=== PATIENT | female | born 1990 | race Caucasian/White ===

== ENCOUNTER 2025-01-08 22:55 | Emergency (ER) | payer OTHER ==
[~2025-01-08] VITALS: Ht 162.6 cm; Wt 72.2 kg
[2025-01-08 23:07] VITALS: BP 139/87; PULSE 130; RESP 16; TEMP 98.2; O2SAT 98
== END 2025-01-09 00:39 | disposition left against medical advice (07) ==
LOC: EMS 23:42
DX: R11.0 Nausea (principal); R42 Dizziness and giddiness; F41.9 Anxiety disorder, unspecified; Z53.21 Procedure and treatment not carried out due to patient leaving prior to being seen by health care provider

== ENCOUNTER 2025-03-10 09:04 | Emergency (ER) | payer OTHER ==
[~2025-03-10] VITALS: Ht 160 cm; Wt 64.5 kg
[2025-03-10 09:11] VITALS: TEMP 98.2
[2025-03-10 09:41] LABS: APPEARANCE,URINE HAZY (CLEAR); GLUCOSE, URINE (UA) NEGATIVE (NEGATIVE); LEUKOCYTE ESTERASE ,URINE LARGE (NEGATIVE); NITRATE,URINE POSITIVE (NEGATIVE); OCCULT BLOOD,URINE LARGE (NEGATIVE); SPECIFIC GRAVITIY, URINE 1.011 (1.003-1.030)
[2025-03-10 10:00] LABS: SQUAMOUS EPITHELIAL CELL,UR Few /LPF (None Seen)
[2025-03-10] MEDS: SODIUM CHLORIDE 0.9% 1,000 ML IV ONE (12:37)
[2025-03-10] MEDS: CefTRIAXone 1 GM/DEXTROSE 50 ML IV ONE (12:38)
[2025-03-10] MEDS ORDERED: IBUP-1492 PO (14:12)
[2025-03-10] MEDS ORDERED: CEPH-558 PO (14:12)
[2025-03-10 15:00] VITALS: BP 121/62; PULSE 75; RESP 18; O2SAT 100
== END 2025-03-10 15:29 | disposition home or self-care (01) ==
LOC: EMS 09:10
DX: N39.0 Urinary tract infection, site not specified (principal); F41.9 Anxiety disorder, unspecified
CPT/HCPCS: 99284; 96365; 81001; 87086; J0696